=== PATIENT | female | born 1985 | race Caucasian/White ===

== ENCOUNTER → 2023-12-07 | Emergency (ER) | payer OTHER ==
[~2023-12-07] VITALS: Ht 172.7 cm; Wt 75.0 kg
[2023-12-07 00:54] VITALS: BP 133/75; PULSE 111; RESP 19; TEMP 98.3; O2SAT 97
== END | disposition left against medical advice (07) ==
LOC: ER 00:52
DX: R11.0 Nausea (principal); R25.2 Cramp and spasm; R20.8 Other disturbances of skin sensation; Z53.21 Procedure and treatment not carried out due to patient leaving prior to being seen by health care provider; Z88.1 Allergy status to other antibiotic agents